=== PATIENT | male | born 1965 | race Caucasian/White ===

== ENCOUNTER 2018-07-08 11:26 | Inpatient (IN) | payer BC ==
--- NOTE | 2018-06-30 14:59 | HP ---
HISTORY AND PHYSICAL: DATE OF ADMISSION/SURGERY: 07/08/18 DATE OF OFFICE VISIT: 06/30/18 SURGEON: Amaris Calhoun MD* (dictated by RACHEL Carmen). PROCEDURE: Right total hip arthroplasty. CHIEF COMPLAINT: Right hip pain. HISTORY OF PRESENT ILLNESS: Mr. Ford is a 53-year-old gentleman with continued complaints of right hip pain. He has failed conservative treatment and elected to proceed with a right total hip arthroplasty. PAST MEDICAL HISTORY: Denies. PAST SURGICAL HISTORY: Tonsillectomy and cosmetic surgery on his ears. CURRENT MEDICATIONS: Addison as needed. ALLERGIES: No known drug allergies. FAMILY HISTORY: Coronary artery disease. SOCIAL HISTORY: He is a 53-year-old gentleman. He lives with his . He does not smoke, use drugs, or alcohol. REVIEW OF SYSTEMS: A complete 14-point review of systems was reviewed with the patient. It was all negative or noncontributory. He denies history of DVT, PE , hepatitis, HIV or anesthesia problems. PHYSICAL EXAMINATION GENERAL: He is well developed, well nourished, in no acute distress. VITAL SIGNS: He stands 5 feet 10 inches tall, weighs 219 pounds. His blood pressure is 138/94, his heart rate is 76. HEENT: Normocephalic, atraumatic. NECK: Supple. No palpable lymph nodes. PULMONARY: The lungs are clear to auscultation bilaterally. CARDIO: Regular rate and rhythm. Strong S1, S2. ABDOMEN: Soft, nontender, nondistended. NEUROLOGICAL: He is alert and oriented x3. MUSCULOSKELETAL: Right lower extremity: The skin is intact. There are no open wounds or abrasions. He walks with an antalgic type gait favoring his right hip. He has decreased internal and external rotation of the right hip. He has a 2+ dorsalis pedis pulse. Intact sensation. His lower extremity muscle group strengths are intact at 5/5. ASSESSMENT AND PLAN: Mr. Ford is a 53-year-old gentleman with end-stage osteoarthritis of the right hip. He has failed conservative treatment and elected to proceed with a right total hip arthroplasty. The surgery is scheduled for 07/08/[address] Calhoun discussed the risks and benefits of the surgery at today's visit and all of his questions were answered. He will follow up with Dr. Calhoun 2 weeks after the surgery. RACHEL CARMEN [id number]/[facility] #: [id number] DORETHA
[~2018-07-08 11:26] MED LIST: Acetaminophen TAB* 325 MG PO ONE; Buffered Lidocaine 1% SYRIN* 1 ML/SYRINGE INTRADERM ONE; Dexamethasone TAB* 4 MG PO ONE; DiMENhydriNATE IV* 50 MG/ML VIAL IV PUSH PRN; Famotidine IV* 10 MG/ML 2 ML (20 mg) IV ONE; Gabapentin CAP(*) 300 MG PO ONE; Lactated Ringers 1000 ML Bag* 1,000 ML IV SCH; Morphine 4 MG/ML VIAL (1 ml) 4 MG/ML VIAL IV PRN; Naloxone* 0.4 MG/ML 1 ML VIAL IV PRN; Ondansetron TAB* 4 MG PO ONE; PROCHLORPERAZINE INJ 5 MG/ML 2 ML VIAL IV PRN; Scopolamine 1.5 mg* PATCH TRANSDERM PRN; celeCOXIB CAP* 200 MG PO ONE; fentaNYL* 50 MCG/ML 2 ML VIAL (100 MCG VIAL) IV PRN; oxyCODONE/Acetamin 5/325 MG* TAB PO PRN
--- OUTSIDE RECORDS SUMMARY | 2018-07-08 11:29 | XMS REPORT | Continuity of Care Document ---
:1965 External Reference #:[id number] Author Name Renuka Joshi Care Team Providers Name Role Phone Rafita Benjamin MD Care Team Information Grooming Assistant Unavailable Rafita Benjamin MD Primary Care Physician Unavailable Payers Date Identification Numbers Payment Provider Subscriber Policy Number: [id number] [employer] Ellie Ford PayID: [id number] [address] [address] [place] [address] Effective: 2017 Policy Number: [id number] [employer] Ppo Ellie Ford Expires: 2018 PayID: [id number] [address] [address] [place] Patel [address] Advance Directives Description No Information Available Problems Date Description Provider Status Onset: 10/12/2015 Localized, primary osteoarthritis of the Amaris Deb Calhoun Active pelvic region and thigh Onset: 07/20/2012 Essential hypertension Active Onset: 05/01/2011 Anxiety state Active Onset: 05/01/2011 Vitamin D deficiency Active Onset: 05/01/2011 Depressive disorder Active Onset: 05/01/2011 Attention deficit hyperactivity disorder, Active predominantly inattentive type Onset: 07/20/2012 Panic disorder without agoraphobia Active Onset: 07/20/2012 Bipolar I disorder Active Onset: 07/20/2012 Impotence of organic origin Active Family History Date Family Member(s) Observation Comments General Heart Disease General Cancer Father Heart Attack Age 62 Father Diabetes Father Breast Cancer Social History Type Date Description Comments Sex Unknown 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 hours as needed for pain No Active 06/04 Hx Unknown Medications - 06/04 Celecoxib 03/16 Hx Capsules 200mg 30cap 1 by mouth M15.9 s every day Angelina gibson MD 06/04 Amphetamine-Dextroa 12/15 Hx Caps ER 30mg 30cap 1 by mouth F90.0 Rafita mphet ER 24HR s every day Flakoellaliliam gibson MD 06/04 Methylphenidate HCL 09/09 Hx Caps ER 20mg 10cap 1 by mouth F90.0 Rafita ER (LA) 24HR s every day Angelina gibson MD 01/25 Adderall XR 07/30 Hx Caps ER 30mg 30cap 1 by mouth F90.0 24HR s every day Castellan - (anjum) os, 09/09 Aleve 07/15 Hx Capsules 220mg 1 tab twice a Castellan - day as os, 03/16 needed Naproxen Sodium 07/15 Hx Tablets 220mg M54.5 Angelina gibson MD 03/16 Dexmethylphenidate 07/15 Hx Caps ER 30mg 30cap stop this F90.0 Rafita HCL 24HR s med Angelina gibson MD 07/30 Celecoxib 04/23 Hx Capsules 200mg 30cap 1 by mouth M54.5 s every day Angelina gibson MD 07/15 Cyclobenzaprine HCL 04/23 Hx Tablets 5mg 30tab 1 by mouth M54.5 s three Castellan - times a os, Tramadol HCL 04/23 Hx Tablets 50mg 60tab 1 by mouth M54.5 s four times Castellan - a day if os, 07/15 with one tylenol Viagra 04/23 Hx Tablets 100mg 6tabs use as N52.9 needed Castellan - daily os, 07/15 Omeprazole 03/27 Hx Capsules 40mg 30cap 1 by mouth R07.9 DR s every day Angelina gibson MD 04/22 Adderall 01/20 Hx Tablets 10mg 30tab 1 daily at F90.0 s 3pm Angelina gibson MD 07/15 Azithromycin 11/19 Hx Tablets 250mg 6tabs 2 now and J01.00 1 daily x Castellan - 4 days os, 01/20 Mucinex 11/19 Hx Tablets 600mg 30tab 2 by mouth J01.00 ER 12HR s twice a Castellan - day os, 01/20 Adderall XR 10/18 Hx Caps ER 30mg 30cap 1 by mouth F90.0 24HR s every day Angelina gibson MD 07/15 Benzonatate 10/15 Hx Capsules 200mg 45cap one cap 3 s times a Castellan - day as os, 01/20 cough Amoxicillin 10/14 Hx Tablets 500mg 30tab 1 by mouth J06.9 s three Castellan - times a os, 11/19 day x days Adderall 09/12 Hx Tablets 15mg 60tab 1 twice a F90.0 s day Angelina gibson MD 09/12 Adderall XR 09/12 Hx Caps ER 15mg 60cap 2 daily 24HR s Angelina gibson MD 10/18 Adderall XR 09/11 Hx Caps ER 30mg 30cap 1 by mouth F90.0 24HR s every day Angelina gibson MD 09/12 Dextroamphetamine 07/19 Hx Caps ER 15mg 30cap 1 daily in F90.0 Sulfate 24HR s am Angelina gibson MD 09/11 Sertraline HCL 10/11 Hx Tablets 50mg 30tab 1 by mouth 300.00 s every day Angelina gibson MD 01/11 Adderall XR 02/10 Hx Caps ER 30mg 30cap 1 by mouth F90.0 24HR s every day Angelina gibson MD 09/11 Cardura 08/25 Hx Tablets 1mg 30tab 1 daily 401.9 s Angelina gibson MD 02/10 Zoloft 10/24 Hx Tablets 50mg 30tab 1 by mouth 311 s every day Angelina gibson MD 10/24 Adderall XR 10/24 Hx Caps ER 25mg 30cap one daily 314.00 24HR s Angelina gibson MD 02/10 Lisinopril-Hydrochl 10/24 Hx Tablets 10-12.5mg 30tab 1 by mouth 401.9 Rafita orothi s every day Angelina gibson MD 11/28 Adderall XR 09/23 Hx Caps ER 10mg 60cap 1 by mouth 314.00 24HR s twice a Flakoellan - day paige, 10/24 Xyzal 09/23 Hx Tablets 5mg 30tab 1 by mouth 995.3 s every day Angelina gibson MD 05/29 Hydrocodone-Acetami 07/18 Hx Tablets 5-325mg 60tab 1 every 4 724.5 Rafita s hrs prnAngelina - 1.5 to 2 os, 09/02 for severe pain Ibuprofen 07/18 Hx Tablets 800mg 90tab 1 by mouth s three Angelina - times a osMD Ativan 07/18 Hx Tablets 1mg 2tabs take 1 tab 1/2 hour Angelina - before osMD 09/02 procedure take an extra tab at procedure if needed for anxiety Meloxicam 06/23 Hx Tablets 15mg 30tab 1 po qd 724.5 s Angelina Ruelas osMD 07/18 Cyclobenzaprine HCL 06/23 Hx Tablets 10mg 45tab 1 by mouth 724.5 s three Angelina - times a osMD Adderall XR 06/23 Hx Caps ER 20mg 30cap 1 by mouth 314.00 24HR s daily in Angelina - in the osMD 09/23 Lisinopril-Hydrochl 06/23 Hx Tablets 20-12.5mg 90tab 1 po qd 401.9 Rafita orothi zunilda gibson MD 10/24 Zoloft 10/25 Hx Tablets 50mg 90tab 1 po qd 311 zunilda gibson MD 09/02 Adderall XR 10/25 Hx Caps ER 10mg 60cap 1 tab bid 314.00 24HR zunilda gibson MD 06/23 Hydrochlorothiazide 07/27 Hx Tablets 25mg 90tab 1 po qd 401.9 zunilda gibson MD 06/23 Adderall XR 05/01 Hx Caps ER 20mg 30cap 1 po qd 314.00 24HR zunilda gibson MD 05/18 Adderall 00 Hx Tablets 30mg 1 tab by Unknown /0000 mouth - twice a Bupropion HCL ER Hx Tablets 150mg 1 by mouth Unknown (SR) /0000 ER 12HR twice a - day 06/[address] Hx Tablets 500mg by mouth Unknown /0000 DR twice a - day with 06/04 Immunizations Description No Information Available Vital Signs Date Vital Result Comment 06/30/2018 9:38am Height 70.0 inches 5'10" Weight 219.00 lb Heart Rate 76 /min BP Systolic 138 mmHg BP Diastolic 94 mmHg Body Temperature 97.2 F Pain Level 3 BMI (Body Mass Index) 31.4 kg/m2 06/04/2018 8:23am Height 70.0 inches 5'10" Weight 218.00 lb BP Systolic 128 mmHg BP Diastolic 84 mmHg Pain Level 3 BMI (Body Mass Index) 31.3 kg/m2 03/16/2018 11:05am Weight 217.00 lb BP Systolic 104 mmHg BP Diastolic 74 mmHg 12/15/2017 1:27pm Height 69.6 inches Weight 213.00 lb Heart Rate 80 /min BP Systolic 118 mmHg BP Diastolic 84 mmHg Respiratory Rate 16 /min BMI (Body Mass Index) 30.9 kg/m2 09/07/2017 3:55pm Weight 212.00 lb Heart Rate 66 /min BP Systolic 130 mmHg BP Diastolic 54 mmHg 07/30/2017 1:09pm Heart Rate 76 /min BP Systolic 138 mmHg BP Diastolic 90 mmHg Respiratory Rate 18 /min 07/15/2017 8:30am Height 70 inches Weight 213.00 lb BP Systolic 112 mmHg BP Diastolic 60 mmHg BMI (Body Mass Index) 30.6 kg/m2 04/23/2017 9:03am Weight 213.00 lb BP Systolic 108 mmHg BP Diastolic 80 mmHg 01/22/2017 3:58pm Weight 206.00 lb BP Systolic 118 mmHg BP Diastolic 90 mmHg 10/23/2016 1:42pm Height 70 inches Weight 221.00 lb BP Systolic 122 mmHg BP Diastolic 88 mmHg BMI (Body Mass Index) 31.7 kg/m2 07/31/2016 1:58pm Weight 218.00 lb BP Systolic 120 mmHg BP Diastolic 90 mmHg 07/24/2016 11:40am BP Systolic 118 mmHg BP Diastolic 80 mmHg 07/15/2016 8:37am Height 70.50 inches Weight 216.50 lb Heart Rate 68 /min BP Systolic 110 mmHg BP Diastolic 80 mmHg Respiratory Rate 16 /min Body Temperature 97.0 F BMI (Body Mass Index) 30.6 kg/m2 04/22/2016 9:48am Weight 220.00 lb BP Systolic 108 mmHg BP Diastolic 84 mmHg 03/27/2016 2:01pm Weight 216.00 lb BP Systolic 118 mmHg BP Diastolic 88 mmHg 01/21/2016 9:43am Weight 213.00 lb BP Systolic 110 mmHg BP Diastolic 80 mmHg 11/20/2015 3:14pm Weight 216.00 lb BP Systolic 110 mmHg BP Diastolic 80 mmHg 10/19/2015 11:06am Weight 214.00 lb Heart Rate 84 /min BP Systolic 110 mmHg BP Diastolic 82 mmHg Body Temperature 98.2 F 10/15/2015 2:47pm Height 39.45 inches 3'3.45" Weight 211.00 lb BP Systolic 130 mmHg BP Diastolic 82 mmHg BMI (Body Mass Index) 14.8 kg/m2 10/12/2015 10:28am Height 70 inches 5'10" Weight 215.00 lb Heart Rate 86 /min BP Systolic 119 mmHg BP Diastolic 88 mmHg BMI (Body Mass Index) 30.8 kg/m2 09/12/2015 2:08pm Weight 217.00 lb BP Systolic 120 mmHg BP Diastolic 92 mmHg 07/20/2015 11:33am Weight 219.00 lb BP Systolic 110 mmHg BP Diastolic 82 mmHg 01/11/2015 4:35pm Weight 198.00 lb BP Systolic 118 mmHg BP Diastolic 78 mmHg 10/11/2014 10:48am Weight 220.50 lb BP Systolic 120 mmHg BP Diastolic 84 mmHg 05/29/2014 10:40am Height 69.55 inches Weight 219.00 lb Heart Rate 71 /min BP Systolic 118 mmHg BP Diastolic 80 mmHg Body Temperature 97.2 F BMI (Body Mass Index) 31.8 kg/m2 05/03/2014 10:01am Weight 215.50 lb BP Systolic 116 mmHg BP Diastolic 84 mmHg 02/10/2014 9:40am Weight 215.50 lb BP Systolic 108 mmHg BP Diastolic 80 mmHg 11/28/2013 11:52am Weight 212.50 lb BP Systolic 106 mmHg BP Diastolic 80 mmHg 10/24/2013 11:23am Weight 211.00 lb BP Systolic 92 mmHg BP Diastolic 76 mmHg 09/23/2013 8:50am Weight 212.00 lb BP Systolic 90 mmHg BP Diastolic 72 mmHg 07/18/2013 9:50am Weight 212.00 lb BP Systolic 100 mmHg BP Diastolic 90 mmHg 07/13/2013 10:51am Weight 212.50 lb BP Systolic 130 mmHg BP Diastolic 88 mmHg 06/23/2013 8:15am Weight 213.50 lb BP Systolic 138 mmHg BP Diastolic 110 mmHg 05/18/2013 1:11pm Weight 225.00 lb BP Systolic 104 mmHg BP Diastolic 90 mmHg 11/24/2012 9:34am Weight 218.00 lb BP Systolic 100 mmHg BP Diastolic 80 mmHg 10/25/2012 11:46am Weight 220.50 lb BP Systolic 120 mmHg BP Diastolic 82 mmHg 07/20/2012 9:53am Height 70 inches Weight 219.00 lb BP Systolic 108 mmHg BP Diastolic 90 mmHg BMI (Body Mass Index) 31.4 kg/m2 04/19/2012 3:45pm Height 70 inches Weight 224.50 lb BP Systolic 138 mmHg BP Diastolic 90 mmHg BMI (Body Mass Index) 32.2 kg/m2 10/27/2011 10:14am Height 70 inches Weight 220.00 lb BP Systolic 108 mmHg BP Diastolic 82 mmHg BMI (Body Mass Index) 31.6 kg/m2 07/28/2011 9:14am Height 70 inches Weight 220.00 lb BP Systolic 134 mmHg BP Diastolic 94 mmHg BMI (Body Mass Index) 31.6 kg/m2 05/01/2011 10:55am Height 70 inches Weight 219.50 lb BP Systolic 104 mmHg BP Diastolic 94 mmHg BMI (Body Mass Index) 31.5 kg/m2 Results Test Date Facility Test Result H/L Range Note Laboratory test 07/24/2016 N2N/CCD Import Surgical See Result 1, 2 finding Interface Order Below CBC 07/17/2016 N2N/CCD Import Hematocrit 48.0 % 38-48 3 Hemoglobin 17.1 gm/dL High 12.8-17 Mean Cell Volume 85.1 fl 80-96 Mean Corpuscular HGB 30.3 pg 27-33 Mean Corpuscular HGB Conc 35.6 g/dL 31.7-36 Mean Platelet Volume 9.3 fL 6.6-10.6 Platelet Count 253 K/uL 150-400 Red Blood Count 5.64 M/uL 4.2-5.8 Red Cell Distri Width %CV 13.0 % 11.6-15.8 White Blood Count 7.0 K/uL 3.4-10.5 Laboratory test finding 07/15/2016 N2N/CCD Import PSA (Ash Loci) 0.54 ng/ mL 4 Reflex add FT3? Y Reflex add FT4? Y Thyroid Stim Hormone 0.53 uIU/mL 0.3-4.2 Basic Metabolic Panel 07/15/2016 N2N/CCD Import Anion Gap 7 mEq/L Low 8- 16 BUN 16 mg/dL 7-18 BUN/Creat 13.3 ratio Calcium 8.9 mg/dL 8.5-10.1 Carbon Dioxide 27 mmol/L 21-32 Chloride 107 mmol/L 98-107 Creatinine 1.2 mg/dL 0.6-1.3 Glom Filtration Rate, Estimate >60 mL/min Glucose 95 mg/dL 74-106 If >60 mL/min 5 Potassium 3.9 mmol/L 3.5-5.1 Reflex add FT3? Y Reflex add FT4? Y Sodium 141 mmol/L 136-145 LDL Cholesterol Profile 07/15/2016 N2N/CCD Import Cholesterol 235 mg/dL High 6 HDL Cholesterol 53 mg/dL 7 LDL-Cholesterol 154 mg/dL 8 Reflex add FT3? Y Reflex add FT4? Y Triglycerides 138 mg/dL 9 Laboratory test 07/20/2012 N2N/CCD Import Thyroid Stim 0.64 uIU/mL 0.49- 4.67 finding Hormone CBC 07/20/2012 N2N/CCD Import Hematocrit 48.5 % High 38-48 Hemoglobin 17.4 gm/dL High 12.8-17 Mean Cell Volume 86.5 fl 80-96 Mean Corpuscular HGB 31.0 pg 27-33 Mean Corpuscular HGB Conc 35.9 g/dL 31.7-36 Mean Platelet Volume 9.6 fL 6.6-10.6 Platelet Count 274 K/uL 150-400 Red Blood Count 5.61 M/uL 4.2-5.8 Red Cell Distri Width %CV 13.2 % 11.6-15.8 White Blood Count 6.8 K/uL 3.4-10.5 Comprehensive Metabolic Panel 07/20/2012 N2N/CCD Import Alb/Glob 1.2 ratio Albumin 4.2 g/dL 3.5-5 Alkaline Phosphatase 70 U/L 50-136 Anion Gap 12 mEq/L 8-16 BUN 17 mg/dL 5-23 BUN/Creat 17.0 ratio Bilirubin,Total 1.1 mg/dL 0.2-1.2 Calcium 9.1 mg/dL 8.5-10.1 Carbon Dioxide 25 mEq/L 18-29 Chloride 106 mmol/L 98-107 Creatinine 1.0 mg/dL 0.5-1.4 Globulin 3.4 g/dL 1.9-4.3 Glom Filtration Rate, Estimate >60 mL/min Glucose 91 mg/dL 76-115 If >60 mL/min 10 Potassium 4.0 mmol/L 3.5-5.1 SGPT/Alt 53 U/L 30-65 Sgot/Ast 19 U/L 16-40 Sodium 139 mmol/L 136-145 Total Protein 7.6 g/dL 6.3-8 LDL Cholesterol 07/20/2012 N2N/CCD Import Cholesterol 228 mg/dL High 120- 200 Profile HDL Cholesterol 45 mg/dL 29-83 LDL-Cholesterol 156 mg/dL 62-185 Triglycerides 134 mg/dL 16-231 1 [id number] 2 SEE RESULT BELOW Name: PARISA FORD : [address]: Rafita Benjamin MD Acct: [id number] Unit: [id number] AGE: 51 Location: [facility] Re07/24/16 SEX: M Status: REG REF SPEC: [id number] LEIGH ANN: 07/24/16-[address]: Rafita Benjamin MD REQ: [id number] RECD: 07/25/16-1413 STATUS: SOUT _ ORDERED: LEVEL IV COMMENTS: [id number] FINAL DIAGNOSIS Skin, right mid forearm, excision: -- Interface dermatitis; see comment. COMMENT: The histologic differential diagnosis includes a lesion of lichen planus and a benign lichenoid keratosis. CLINICAL HISTORY Lesion on right forearm for over 2 months, not healing PRE-OPERATIVE DIAGNOSIS Non-healing lesion right forearm GROSS DESCRIPTION The specimen is received in formalin labeled, Lesion Right Mid Forearm, and consists of a 0.6 x 0.4 x 0.3 cm ty-lopez irregular skin fragment, which is inked, trisected and submitted entirely in one cassette. Signed (signature on file) Brittany Gonzales MD 1320 END OF REPORT * ML=Testing performed at Main Lab DEPARTMENT OF PATHOLOGY, [address] [place] [address] Darrel Cheung M.D. Director [facility] # [id number] 3 Z12.5 F32.9 Z00.00 4 THIS ASSAY IS NOT INTENDED A CANCER SCREENING TEST The concentration of PSA in a given specimen, determined with assays from different manufacturers, can vary due to differences in assay methods and reagent specificity. Values obtained from different assay methods cannot be used interchangeably. Method: [employer] Ash Chemiluminescent immunoassay. 5 Note: Persistent reduction for 3 months or more in an eGFR <60 mL/min/1.73 m2 defines CKD. Patients with eGFR values >/=60 mL/min/1.73 m2 may also have CKD if evidence of persistent proteinuria is present. The original MDRD equation for estimated GFR is not valid for patients less than 18 years of age. Additional information may be found at www.kdoqi.org. 6 Reference Guidelines*: Desirable: ........... < 200 mg/dL Borderline High: ..... 200-239 mg/dL High: ................ >=240 mg/dL * The National Cholesterol Education Program (NCEP) 7 Reference Guidelines*: Low HDL: ..... < 40 mg/dL Normal: ..... 40-60 mg/dL Desirable: ... > 60 mg/dL *The National Cholesterol Education Program(NCEP) 8 Reference Guidelines*: Optimal:........... <100 mg/dL Near Optimal....... 100-129 mg/dL Borderline High.... 130-159 mg/dL High............... 160-189 mg/dL Very High.......... >=190 mg/dL * Source: National Cholesterol Education Program (NCEP) 9 Reference Guidelines*: Normal: ............. < 150 mg/dL Borderline High: .... 150-199 mg/dL High: ............... 200-499 mg/dL Very High: .......... > 500 mg/dL * Source: National Cholesterol Education Program (NCEP) 10 Note: Persistent reduction for 3 months or more in an eGFR <60 mL/min/1.73 m2 defines CKD. Patients with eGFR values >/=60 mL/min/1.73 m2 may also have CKD if evidence of persistent proteinuria is present. The original MDRD equation for estimated GFR is not valid for patients less than 18 years of age. Additional information may be found at www.kdoqi.org. Procedures Date Code Description Status 07/24/2016 09849 Biopsy Skin Lesion Single Completed 03/27/2016 76675 EKG Tracing & Interpretation Completed 05/29/2014 98302 Pure Tone Hearing Test, Air Completed 07/13/2013 831216667 Diabetic Retinal Eye Exam Completed 07/20/2012 20640 EKG Tracing & Interpretation Completed 05/15/2010 07996 Visual funct screen test, automated Completed 05/15/2010 39732 Pure Tone-Air Condition Only Completed Encounters Type Date Location Provider Dx Diagnosis Office Visit 06/04/2018 [facility] Am[facility] Calhoun M25.551 Pain in right hip 8:15a [facility] M16.11 Unilateral primary osteoarthritis, right hip Office Visit 10/12/2015 10:00a [facility] Amaris Calhoun M25.551 Pain in right Of [facility] hip M16.11 Unilateral primary osteoarthritis, right hip Plan of Treatment Future Appointment(s):07/19/2018 9:00 am - Amaris Calhoun M.D. at [facility]07/01/2018 3:30 pm - Rafita Benjamin MD at [facility]07/08/2018 2:30 pm - Erick Jane PA-C at [facility]07/2018 2:30 pm - RAMY Del Castillo at [facility]2018 2:30 pm - Amaris Calhoun M.D. at [facility]12/16/2018 1 :00 pm - Rafita Benjamin MD at [facility] Primary Care06/30/2018 - Amaris Calhoun M.D.M25.551 Pain in right hipFollow up:Follow up: 2 weeks after [id number] Unilateral primary osteoarthritis, right hip
--- OUTSIDE RECORDS SUMMARY | 2018-07-08 11:29 | XMS REPORT | Continuity of Care Document ---
:1965 External Reference #:[id number] Author Name Dominga Goins Care Team Providers Name Role Phone Rafita Benjamin MD Care Team Information Brewing Director Unavailable Rafita Benjamin MD Primary Care Physician Unavailable Payers Date Identification Numbers Payment Provider Subscriber Policy Number: [id number] BS Facets Ellie Ford PayID: [id number] [address] [address] [place] Bhatti [address] Effective: 2017 Policy Number: [id number] Blue Shield Ppo Ellie Ford Expires: 2018 PayID: [id number] [address] [address] NEGIN Patel [address] Advance Directives Description No Information Available Problems [...] Form Strength Qnty SIG Indications Ordering Provider [place]ette 06/04 Active Tablets 5-325mg 60tab 1 tabs by Amaris s mouth Lj, every 8 M.D. hours as needed for pain No Active 06/04 Hx Unknown Medications - 06/04 Celecoxib 03/16 Hx Capsules 200mg 30cap 1 by mouth M15.9 s every day Angelina gibson MD 06/04 Amphetamine-Dextroa 12/15 Hx Caps ER 30mg 30cap 1 by mouth F90.0 Rafita mphet ER 24HR s every day Angelina gibson MD 06/04 Methylphenidate HCL 09/09 Hx [...] every day Angelina gibson MD 09/11 Cardura 11/28 Hx Tablets 1mg 30tab 1 daily 401.9 [...] s daily in Angelina - in the os, 09/23 Lisinopril-Hydrochl 06/23 Hx Tablets 20-12.5mg 90tab [...] 314.00 24HR zunilda gibson MD 05/18 Adderall Hx Tablets 30mg 1 tab by Unknown [...] Date Facility Test Result H/L Range Note Comp Metabolic Panel 06/30/2018 [facility] Sodium 137 mmol/L N 135-[address] [place] [address] [phone] Potassium 4.3 mmol/L N 3.5-5.0 Chloride 102 mmol/L N 101-111 Co2 Carbon Dioxide 28 mmol/L N 22-32 Anion Gap 7 mmol/L N 2-11 Glucose 82 mg/dL N 70-100 Blood Urea Nitrogen 20 mg/dL N 6-24 Creatinine 0.98 mg/dL N 0.67-1.17 BUN/Creatinine Ratio 20.4 High 8-20 Calcium 9.4 mg/dL N 8.6-10.3 Total Protein 7.2 g/dL N 6.4-8.9 Albumin 4.7 g/dL N 3.2-5.2 Globulin 2.5 g/dL N 2-4 Albumin/Globulin Ratio 1.9 N 1-3 Total Bilirubin 1.00 mg/dL N 0.2-1.0 Alkaline Phosphatase 59 U/L N 34-104 Alt 34 U/L N 7-52 Ast 21 U/L N 13-39 Egfr Non- 79.4 >60 Egfr 96.1 >60 2 CBC Auto Diff 06/30/2018 [facility] White Blood 6.2 10^3/uL N 3.5-10.[address] [place] [address] [phone] Red Blood Count 5.60 10^6/uL High 4.18-5.48 Hemoglobin 17.4 g/dL N 14.0-18.0 Hematocrit 49 % High 36-46 Mean Corpuscular Volume 88 fL N 80-94 Mean Corpuscular Hemoglobin 31 pg N 27-31 Mean Corpuscular HGB Conc 35 g/dL N 31-36 Red Cell Distribution Width 13 % N 10.5-15 Platelet Count 261 10^3/uL N 150-450 Mean Platelet Volume 7.5 fL N 7.4-10.4 Abs Neutrophils 3.7 10^3/uL N 1.5-7.7 Abs Lymphocytes 1.9 10^3/uL N 1.0-4.8 Abs Monocytes 0.5 10^3/uL N 0-0.8 Abs Eosinophils 0.1 10^3/uL N 0-0.6 Abs Basophils 0.1 10^3/uL N 0-0.2 Abs Nucleated RBC 0 10^3/uL Granulocyte % 59.9 % Lymphocyte % 30.1 % Monocyte % 7.4 % Eosinophil % 1.6 % Basophil % 1.0 % Nucleated Red Blood Cells % 0.1 Urinalysis Profile 06/30/2018 [facility] Urine Color Yellow [address] [place] [address] [phone] Urine Appearance Clear Urine Specific [place] 1.019 N 1.010-1.030 Urine pH 5.0 N 5-9 Urine Urobilinogen Negative Negative Urine Ketones Negative Negative Urine Protein Negative Negative Urine Leukocytes Negative Negative Urine Blood Negative Negative Urine Nitrite Negative Negative Urine Bilirubin Negative Negative Urine Glucose Negative Negative Inr/Protime 06/30/2018 [facility] Inr 0.90 N 0.77-1.[address] [place] [address] [phone] Laboratory test 06/30/2018 [facility] Partial 30.2 seconds N 26.0-36.[address] [place] [address] PTT [phone] Type & Screen 06/30/2018 [facility] Patient A Positive [address] [place] [address] [phone] Antibody Screen NEGATIVE Laboratory test 07/24/2016 N2N/CCD Import Surgical See Result 4, 5 finding Interface Order Below CBC 07/17/2016 N2N/CCD Import Hematocrit 48.0 % 38-48 6 Hemoglobin 17.1 gm/dL High 12.8-17 Mean Cell Volume 85.1 fl 80-96 Mean Corpuscular HGB 30.3 pg 27-33 Mean Corpuscular HGB Conc 35.6 g/dL 31.7-36 Mean Platelet Volume 9.3 fL 6.6-10.6 Platelet Count 253 K/uL 150-400 Red Blood Count 5.64 M/uL 4.2-5.8 Red Cell Distri Width %CV 13.0 % 11.6-15.8 White Blood Count 7.0 K/uL 3.4-10.5 Laboratory test finding 07/15/2016 N2N/CCD Import PSA ([place] Loci) 0.54 ng/ mL 7 Reflex add FT3? Y Reflex add FT4? [...] Glucose 95 mg/dL 74-106 If >60 mL/min 8 Potassium 3.9 mmol/L 3.5-5.1 Reflex add FT3? Y Reflex add FT4? Y Sodium 141 mmol/L 136-145 LDL Cholesterol Profile 07/15/2016 N2N/CCD Import Cholesterol 235 mg/dL High 9 HDL Cholesterol 53 mg/dL 10 LDL-Cholesterol 154 mg/dL 11 Reflex add FT3? Y Reflex add FT4? Y Triglycerides 138 mg/dL 12 Laboratory test 07/20/2012 N2N/CCD Import Thyroid Stim [...] Glucose 91 mg/dL 76-115 If >60 mL/min 13 Potassium 4.0 mmol/L 3.5-5.1 SGPT/Alt 53 U/L 30-65 Sgot/Ast 19 U/L 16-40 Sodium 139 mmol/L 136-145 Total Protein 7.6 g/dL 6.3-8 LDL Cholesterol 07/20/2012 N2N/CCD Import Cholesterol 228 mg/dL High 120- 200 Profile HDL Cholesterol 45 mg/dL 29-83 LDL-Cholesterol 156 mg/dL 62-185 Triglycerides 134 mg/dL 16-231 1 07/08 2 Because ethnic data is not always readily available, this report includes an eGFR for both -Americans and non- Americans. The National Kidney Disease Education Program (NKDEP) does not endorse the use of the MDRD equation for patients that are not between the ages of 18 and 70, are , have extremes of body size, muscle mass, or nutritional status, or are non- or non-. According to the National Kidney Foundation, irrespective of diagnosis, the stage of the disease is based on the level of kidney function: Stage Description GFR(mL/min/1.73 m(2)) 1 Kidney damage with normal or decreased GFR 90 2 Kidney damage with mild decrease in GFR 60-89 3 Moderate decrease in GFR 30-59 4 Severe decrease in GFR 15-29 5 Kidney failure <15 (or dialysis) 3 07/08 4 [id number] 5 SEE RESULT BELOW Name: PARISA FORD : [address]: Rafita Benjamin MD Acct: [id number] Unit: [id number] AGE: 51 Location: [facility] Re07/24/16 SEX: M Status: REG REF SPEC: [id number] LEIGH ANN: 07/24/16-[address]: Rafita Benjamin MD REQ: [id number] RECD: 07/25/16 STATUS: SOUT _ ORDERED: LEVEL IV COMMENTS: [id number] FINAL DIAGNOSIS Skin, right mid forearm, excision: [...] performed at Main Lab DEPARTMENT OF PATHOLOGY, [address] [place] [address] Darrel Cheung M.D. Director [facility] # [id number] 6 Z12.5 F32.9 Z00.00 7 THIS ASSAY IS NOT INTENDED A CANCER SCREENING TEST The concentration of PSA in a given specimen, determined with assays from different manufacturers, can vary due to differences in assay methods and reagent specificity. Values obtained from different assay methods cannot be used interchangeably. Method: Siemens Calibrus [place] Chemiluminescent immunoassay. 8 Note: Persistent reduction for 3 months or more in an eGFR <60 mL/min/1.73 m2 defines CKD. Patients with eGFR values >/=60 mL/min/1.73 m2 may also have CKD if evidence of persistent proteinuria is present. The original MDRD equation for estimated GFR is not valid for patients less than 18 years of age. Additional information may be found at www.kdoqi.org. 9 Reference Guidelines*: Desirable: ........... < 200 mg/dL Borderline High: ..... 200-239 mg/dL High: ................ >=240 mg/dL * The National Cholesterol Education Program (NCEP) 10 Reference Guidelines*: Low HDL: ..... < 40 mg/dL Normal: ..... 40-60 mg/dL Desirable: ... > 60 mg/dL *The National Cholesterol Education Program(NCEP) 11 Reference Guidelines*: Optimal:........... <100 mg/dL Near Optimal....... 100-129 mg/dL Borderline High.... 130-159 mg/dL High............... 160-189 mg/dL Very High.......... >=190 mg/dL * Source: National Cholesterol Education Program (NCEP) 12 Reference Guidelines*: Normal: ............. < 150 mg/dL Borderline High: .... 150-199 mg/dL High: ............... 200-499 mg/dL Very High: .......... > 500 mg/dL * Source: National Cholesterol Education Program (NCEP) 13 Note: Persistent reduction for 3 months or [...] www.kdoqi.org. Procedures Date Code Description Status 07/24/2016 55752 Biopsy Skin Lesion Single Completed 03/27/2016 51503 EKG Tracing & Interpretation Completed 05/29/2014 37859 Pure Tone Hearing Test, Air Completed 07/13/2013 [id number] Diabetic Retinal Eye Exam Completed 07/20/2012 13228 EKG Tracing & Interpretation Completed 05/15/2010 91067 Visual funct screen test, automated Completed 05/15/2010 98400 Pure Tone-Air Condition Only Completed Encounters Type Date Location Provider Dx Diagnosis Office Visit 06/04/2018 [facility] Calhoun M25.551 Pain in right hip 8:15a [facility] M16.11 Unilateral primary osteoarthritis, right hip Office Visit 10/12/2015 10:00a [facility] Am[facility]houn M25.551 Pain in right [facility] hip M16.11 Unilateral primary osteoarthritis, right hip Plan of Treatment Future Appointment(s):07/19/2018 9:00 am - Amaris [facility]oun M.D. at [facility]07/08/2018 2:30 pm - Erick Jane PA-C at [facility]07/08/2018 2:30 pm - RAMY Del Castillo at [facility]07/08/2018 2:30 pm - Amaris Calhoun M.D. at [facility]12/16/2018 1:00 pm - Rafita Benjamin MD at [facility] Primary Care06/30/2018 - Amaris Calhoun M.D.M25.551 Pain in right hipFollow up:Follow up : 2 weeks after mgtzxozD32.11 Unilateral primary osteoarthritis, right hip
--- OUTSIDE RECORDS SUMMARY | 2018-07-08 11:29 | XMS REPORT | Continuity of Care Document ---
:1965 External Reference #:[id number] Author Name Will Hazel Care Team Providers Name Role Phone Rafita Benjamin MD Care Team Information Piping Blocker Unavailable Rafita Benjamin MD Primary Care Physician Unavailable Payers Date Identification Numbers Payment Provider Subscriber Policy Number: [id number] BS Facets Ellie Ford PayID: [id number] [address] [address] [place] [address] Effective: 2017 Policy Number: [id number] Blue Shield Ppo Ellie Ford Expires: 2018 PayID: [id number] [address] [address] NE[place] Patel [address] Advance Directives Description No Information Available Problems Date Description Provider Status Onset: 10/12/2015 Localized, primary osteoarthritis of mAaris Calhoun M.D. Active the pelvic region and thigh Onset: 07/20/2012 Impotence of organic origin Active Onset: 05/01/2011 Vitamin D deficiency Active Onset: 05/01/2011 Anxiety state Active Onset: 07/20/2012 Essential hypertension Resolved Resolved: 07/01/2018 Onset: 07/20/2012 Bipolar I disorder Resolved Resolved: 07/01/2018 Onset: 07/20/2012 Panic disorder without agoraphobia Resolved Resolved: 07/01/2018 Onset: 05/01/2011 Attention deficit hyperactivity disorder, predominantly Resolved inattentive type Resolved: 07/01/2018 Onset: 05/01/2011 Depressive disorder Resolved Resolved: 07/01/2018 Family History Date Family Member(s) Observation Comments General Heart Disease General Cancer Father Heart Attack Age 62 Father due to CHF () Father Diabetes Father Breast Cancer Social History Type Date Description Comments Sex Unknown 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 hours as needed for pain No Active 06/04 Hx Unknown Medications /2018 - 06/04 Celecoxib 03/16 Hx Capsules 200mg 30cap 1 by mouth M15.9 s every day Angelina gibson MD 06/04 Amphetamine-Dextroa 12/15 Hx Caps ER 30mg 30cap 1 by mouth F90.0 Rafita mphet 24HR s every day Angelina gibson MD 06/04 Methylphenidate HCL 09/09 Hx Caps ER 20mg 10cap 1 by mouth F90.0 Rafita ER (LA) 24HR s every day Angelina gibson MD 01/25 Adderall XR 07/30 Hx Caps ER 30mg 30cap 1 by mouth F90.0 24HR s every day Flakoellaliliam - (anjum) os, 09/09 Aleve 07/15 Hx Capsules 220mg 1 tab twice a Castellan - day as os, 03/16 Naproxen Sodium 07/15 Hx Tablets 220mg M54.5 [...] ER 15mg 30cap 1 daily in F90.0 Rafita Sulfate 24HR s am Angelina gibson MD [...] Tablets 50mg 30tab 1 by mouth 311 Rafita s every day Angelina gibson MD 10/24 Adderall XR 10/24 Hx Caps ER 25mg 30cap one daily 314.00 24HR s Angelina gibson MD 02/10 Lisinopril-Hydrochl 10/24 Hx Tablets 10-12.5mg 30tab 1 by mouth 401.9 Rafita oro s every day Angelina gibson MD 11/28 Adderall XR 09/23 Hx Caps ER 10mg 60cap 1 by mouth 314.00 24HR s twice a Angelina Ruelas day MD paige 10/24 Xyzal 09/23 Hx Tablets 5mg 30tab 1 by mouth 995.3 s every day Angelina gibson MD 05/29 Hydrocodone-Acetami 07/18 Hx Tablets 5-325mg 60tab 1 every 4 724.5 Rafita s hrs prn, Flakoellaliliam - 1.5 to 2 os, 09/02 for severe pain Ibuprofen 07/18 Hx Tablets 800mg 90tab 1 by mouth s three Flakoellan - times a osMD Ativan 07/18 Hx Tablets 1mg 2tabs take 1 tab 1/2 hour Flakoellaliliam - before osMD 09/02 procedure take an extra tab at procedure if needed for anxiety Meloxicam 06/23 Hx Tablets 15mg 30tab 1 po qd 724.5 s Angelina gibson MD 07/18 Cyclobenzaprine HCL 06/23 Hx Tablets 10mg 45tab 1 by mouth 724.5 s three Flakoellan - times a osMD Adderall XR 03/20 Hx Caps ER 20mg 30cap 1 by mouth 314.00 24HR s daily in Angelina li MD 09/23 Lisinopril-Hydrochl 06/23 Hx Tablets 20-12.5mg 90tab 1 po qd 401.9 Rafita oro zunilda gibson MD 10/24 Zoloft 10/25 Hx Tablets 50mg 90tab 1 po qd 311 zunilda gibson MD 09/02 Adderall XR 10/25 Hx Caps ER 10mg 60cap 1 tab bid 314.00 24HR s Angelina gibson MD 06/23 Hydrochlorothiazide 07/27 Hx Tablets 25mg 90tab 1 po qd 401.9 zunilda gibson MD 06/23 Adderall XR 05/01 Hx Caps ER 20mg 30cap 1 po qd 314.00 24HR s Angelina gibson MD 05/18 Adderall Hx Tablets 30mg 1 tab by Unknown /0000 mouth - twice a Bupropion HCL ER Hx Tablets 150mg 1 by mouth Unknown (SR) /0000 ER 12HR twice a - day 06/[address] Hx Tablets 500mg by mouth Unknown /0000 DR twice a - day with 06/04 Immunizations CPT Code Status Date Vaccine Reaction Lot # [id number] Given 07/01/2018 Tdap - risk & benefits MF9EA/Tdap/Priv Tetanus/Diptheria/Acel discussed ate lular Pertussis Vital Signs Date Vital Result Comment 07/01/2018 3:52pm Height 70 inches 5'10" Weight 215.00 lb Heart Rate 78 /min BP Systolic 126 mmHg BP Diastolic 86 mmHg Respiratory Rate 16 /min O2 % BldC Oximetry 98 % room air BMI (Body Mass Index) 30.8 kg/m2 06/30/2018 9:38am Height 70.0 inches 5'10" Weight [...] H/L Range Note Comp Metabolic Panel 06/30/2018 [facility] Sodium 137 mmol/L N 135-[address] [place] [address] [phone] Potassium 4.3 mmol/L N 3.5-5.0 Chloride 102 [...] 96.1 >60 2 CBC Auto Diff 06/30/2018 [facility] White Blood 6.2 10^3/uL N 3.5-10.[address] [place] [address] [phone] Red Blood Count 5.60 10^6/uL High 4.18-5.48 [...] Blood Cells % 0.1 Urinalysis Profile 06/30/2018 [facility] Urine Color Yellow [address] [place] [address] [phone] Urine Appearance Clear Urine Specific [place] 1.019 N 1.010-1.030 Urine pH 5.0 N 5-9 Urine Urobilinogen Negative Negative Urine Ketones Negative Negative Urine Protein Negative Negative Urine Leukocytes Negative Negative Urine Blood Negative Negative Urine Nitrite Negative Negative Urine Bilirubin Negative Negative Urine Glucose Negative Negative Inr/Protime 06/30/2018 [facility] Inr 0.90 N 0.77-1.[address] [place] [address] [phone] Laboratory test 06/30/2018 [facility] Partial 30.2 seconds N 26.0-36.3 [address] [place] [address] PTT [phone] Type & Screen 06/30/2018 [facility] Patient A Positive [address] [place] [address] [phone] Antibody Screen NEGATIVE Urine Culture And 06/30/2018 [facility] Urine Culture SEE RESULT [address] [place] [address] [phone] Laboratory test 07/24/2016 N2N/CCD Import Surgical See Result 5, 6 finding Interface Order Below CBC 07/17/2016 N2N/CCD Import Hematocrit 48.0 % 38-4 7 8 Hemoglobin 17.1 gm/dL High 12.8-17 Mean Cell Volume 85.1 fl 80-96 Mean Corpuscular HGB 30.3 pg 27-33 Mean Corpuscular HGB Conc 35.6 g/dL 31.7-36 Mean Platelet Volume 9.3 fL 6.6-10.6 Platelet Count 253 K/uL 150-400 Red Blood Count 5.64 M/uL 4.2-5.8 Red Cell Distri Width %CV 13.0 % 11.6-15.8 White Blood Count 7.0 K/uL 3.4-10.5 Laboratory test finding 07/15/2016 N2N/CCD Import PSA ([place] Loci) 0.54 ng/ mL 8 Reflex add FT3? Y Reflex add [...] Glucose 95 mg/dL 74-106 If >60 mL/min 9 Potassium 3.9 mmol/L 3.5-5.1 Reflex add FT3? Y Reflex add FT4? Y Sodium 141 mmol/L 136-145 LDL Cholesterol Profile 07/15/2016 N2N/CCD Import Cholesterol 235 mg/dL High 10 HDL Cholesterol 53 mg/dL 11 LDL-Cholesterol 154 mg/dL 12 Reflex add FT3? Y Reflex add FT4? Y Triglycerides 138 mg/dL 13 Laboratory test 07/20/2012 N2N/CCD Import Thyroid Stim [...] Glucose 91 mg/dL 76-115 If >60 mL/min 14 Potassium 4.0 mmol/L 3.5-5.1 SGPT/Alt 53 U/L 30-65 Sgot/Ast 19 U/L 16-40 Sodium 139 mmol/L 136-145 Total Protein 7.6 g/dL 6.3-8 LDL Cholesterol 07/20/2012 N2N/CCD Import Cholesterol 228 mg/dL High 120- 200 Profile HDL Cholesterol 45 mg/dL 29-83 LDL-Cholesterol 156 mg/dL 62-185 Triglycerides 134 mg/dL 16-231 1 AA 07/08 2 Because ethnic data is not [...] failure <15 (or dialysis) 3 07/08 4 SEE RESULT BELOW Name: PARISA FORD : [address]: Amaris Calhoun MD Acct: [id number] Unit: [id number] AGE: 53 Location: [facility] Re06/30/18 SEX: M Status: REG REF SPEC: [id number] LEIGH ANN: 06/30/18-[address] [facility] [address]: Amaris Calhoun MD REQ: [id number] RECD: 06/30/18-9922 STATUS: JAMIE CUMMINGS DR: Rafita Benjamin MD _ SOURCE: URINE SPDESC: ORDERED: Urine Culture COMMENTS: 07/08 QUERIES: Urine Source: Clean Catch Procedure Result Reported Site Urine Culture Final 07/01/18- 1217 ML No Growth (<1,000 CFU/mL) * ML - Main Lab . END OF REPORT DEPARTMENT OF PATHOLOGY, [address] [place] [address] Darrel Cheung M.D. Director [facility] # [id number] 5 [id number] SEE RESULT BELOW Name: PARISA FORD : [address]: Rafita Benjamin MD Acct: [id number] Unit: [id number] AGE: 51 Location: [facility] Re07/24/16 SEX: M Status: REG REF SPEC: [id number] LEIGH ANN: 07/24/16-[address] [facility] [address]: Rafita Benjamin MD REQ: [id number] RECD: 07/25/161047 STATUS: SOUT _ ORDERED: LEVEL IV COMMENTS: [id number] FINAL DIAGNOSIS Skin, right mid forearm, excision: [...] performed at Main Lab DEPARTMENT OF PATHOLOGY, [address] [place] [address] Darrel Cheung M.D. Director [facility] # [id number] 7 Z12.5 F32.9 Z00.00 8 THIS ASSAY IS NOT INTENDED A CANCER SCREENING TEST The concentration of PSA in a given specimen, determined with assays from different manufacturers, can vary due to differences in assay methods and reagent specificity. Values obtained from different assay methods cannot be used interchangeably. Method: Siemens Dimension [place] Chemiluminescent immunoassay. 9 Note: Persistent reduction for 3 months or more in an eGFR <60 mL/min/1.73 m2 defines CKD. Patients with eGFR values >/=60 mL/min/1.73 m2 may also have CKD if evidence of persistent proteinuria is present. The original MDRD equation for estimated GFR is not valid for patients less than 18 years of age. Additional information may be found at www.kdoqi.org. 10 Reference Guidelines*: Desirable: ........... < 200 mg/dL Borderline High: ..... 200-239 mg/dL High: ................ >=240 mg/dL * The National Cholesterol Education Program (NCEP) 11 Reference Guidelines*: Low HDL: ..... < 40 mg/dL Normal: ..... 40-60 mg/dL Desirable: ... > 60 mg/dL *The National Cholesterol Education Program(NCEP) 12 Reference Guidelines*: Optimal:........... <100 mg/dL Near Optimal....... 100-129 mg/dL Borderline High.... 130-159 mg/dL High............... 160-189 mg/dL Very High.......... >=190 mg/dL * Source: National Cholesterol Education Program (NCEP) 13 Reference Guidelines*: Normal: ............. < 150 mg/dL Borderline High: .... 150-199 mg/dL High: ............... 200-499 mg/dL Very High: .......... > 500 mg/dL * Source: National Cholesterol Education Program (NCEP) 14 Note: Persistent reduction for 3 months or [...] www.kdoqi.org. Procedures Date Code Description Status 07/24/2016 86146 Biopsy Skin Lesion Single Completed 03/27/2016 30770 EKG Tracing & Interpretation Completed 05/29/2014 28105 Pure Tone Hearing Test, Air Completed 07/13/2013 [id number] Diabetic Retinal Eye Exam Completed 07/20/2012 32074 EKG Tracing & Interpretation Completed 05/15/2010 05196 Visual funct screen test, automated Completed 05/15/2010 92567 Pure Tone-Air Condition Only Completed Encounters Type Date Location Provider Dx Diagnosis Office Visit 06/04/2018 [facility] Am[facility] Calhoun, M25.551 Pain in right hip 8:15a [facility] M16.11 Unilateral primary osteoarthritis, right hip Office Visit 10/12/2015 10:00a [facility] Amaris Calhoun M25.551 Pain in right [facility] hip M16.11 Unilateral primary osteoarthritis, right hip Plan of Treatment Future Appointment(s):07/19/2018 9:00 am - Amaris Calhoun M.D. at [facility]07/08/2018 2:30 pm - Erick Jane PA-C at [facility]07/08/2018 2:30 pm - RAMY Del Castillo at [facility]2018 2:30 pm - Amaris Calhoun M.D. at [facility]12/16/2018 1:00 pm - Rafita Benjamin MD at [facility] Primary Care06/30/2018 - Amaris Calhoun M.D.M25.551 Pain in right hipFollow up:Follow up : 2 weeks after ccknlshX52.11 Unilateral primary osteoarthritis, right hip
[2018-07-08] MEDS ORDERED: KETAMINE HCL* 50 MG/ML 10 ML VIAL ONE (11:33)
[2018-07-08] MEDS ORDERED: Midazolam* 1 MG/ML 5 ML VIAL (5 MG) ONE (11:33)
[2018-07-08] MEDS ORDERED: fentaNYL* 50 MCG/ML 2 ML VIAL (100 MCG VIAL) ONE (11:33)
[2018-07-08] MEDS ORDERED: Acetaminophen TAB* 325 MG ONE (11:46)
[2018-07-08] MEDS ORDERED: Famotidine IV* 10 MG/ML 2 ML (20 mg) ONE (11:46)
[2018-07-08] MEDS ORDERED: Dexamethasone TAB* 4 MG ONE (11:46)
[2018-07-08] MEDS ORDERED: Gabapentin CAP(*) 300 MG ONE (11:46)
[2018-07-08] MEDS ORDERED: Ondansetron ODT TAB* 4 MG ONE (11:46)
[2018-07-08] MEDS ORDERED: celeCOXIB CAP* 100 MG ONE (11:46)
[2018-07-08] MEDS ORDERED: ceFAZolin 2 GM in NS PREMIX(*) 2 GM/100 ML BAG IVPB ONE (11:47)
[2018-07-08] MEDS ORDERED: Bupivacaine 0.5%* 50 ML VIAL ONE (14:01)
[2018-07-08] MEDS ORDERED: Propofol* 10 MG/ML 20 ML BTL ONE (15:17)
[2018-07-08] MEDS ORDERED: Propofol* 500 MG/50 ML BTL ONE (15:17)
[2018-07-08] MEDS ORDERED: Lidocaine 2% PF * 5 ML VIAL ONE (15:17)
[2018-07-08] MEDS ORDERED: Bupivacaine 0.5% SDV PF* 30ML VIAL ONE (15:17)
[2018-07-08] MEDS ORDERED: Bisacodyl SUPP* 10 MG SUPP PR PRN (15:56)
[2018-07-08] MEDS ORDERED: Acetaminophen TAB* 325 MG PO PRN (15:56)
[2018-07-08] MEDS ORDERED: diPHENhydraMINE IV* 50 MG/ML 1 ml VIAL (BENADRYL) IV PRN (15:56)
[2018-07-08] MEDS ORDERED: Magnesium Hydroxide LIQ* 30 ML UDC PO PRN (15:56)
[2018-07-08] MEDS ORDERED: Morphine INJ* 2 MG/ML 1 ML SYRINGE (TWO MG - NEW SYRINGE VERSION) IV PRN (15:56)
[2018-07-08] MEDS ORDERED: oxyCODONE/Acetamin 5/325 MG* TAB PO PRN (15:56)
[2018-07-08] MEDS ORDERED: oxyCODONE/Acetamin 5/325 MG* TAB ONE (17:06)
--- NOTE | 2018-07-08 17:46 | OP ---
Operative Report - Blank - Operative Report Date of Operation: 07/08/18 Note: PARISA VALENZUELA 1965 Date Of Surgery:07/08/18 Amaris Calhoun MD Channel Development Manager: Erick RAMOS did help throughout the procedure with preparation of the hip, wound retraction, manipulation of the hip, and wound closure. Anesthesiologist: Matthew Khoury MD Anesthesia Type: Spinal Preoperative Diagnosis: Right severe degenerative osteoarthritis of the hip Postoperative Diagnosis: As above Procedure Performed: Right Total Hip Arthroplasty Complications: None Specimen: Femoral head and acetabular reamings sent to pathology. Hardware used: This is uncemented Cassia total hip arthroplasty hardware for the femur a size 4 accolade II with 127 degree neck right femoral component, for the acetabulum a size 54E trident II tritanium cluster hole shell with one 20mm screw, for the insert a size 36E trident x3 zero degree insert, and for the femoral head a size 36+0 biolox ceramic V40 femoral head. Brief history/Indication: PARISA VALENZUELA was known in clinic and had a history of severe right hip pain. He failed conservative treatment with anti- inflammatories, pain pills, intra-articular injections and physical therapy. He elected to undergo right total hip arthroplasty due to continued pain and decreased quality of life. Radiographs showed severe end stage osteoarthritis of the hip with bone on bone contact. Informed consent was obtained from the patient. He understood the risks of surgery included but were not limited to: bleeding, infection, damage to nearby structures, intraoperative fracture, nerve palsy, failure of the hardware, early loosening, stiffness or loss of motion, dislocation, leg length discrepancy, anesthesia complications, stroke, heart attack, blood clot and . He wished to proceed. Intra-Operative findings: Intraoperatively the patient was noted to have severe loss of cartilage of the acetabulum and femoral head. Description of the Procedure: PARISA VALENZUELA was identified in the preanesthesia unit. His left hip was marked as the correct operative side. Informed consent was signed and placed in the chart. The patient was taken to the operating room and placed under anesthesia without complication. A auguste catheter was placed. The patient was placed on the peg board with all bony prominences well padded. The left lower extremity was prepped and draped in the usual sterile fashion. Preoperative time -out was made to correctly identify the patient, side and site. Appropriate intraoperative antibiotics were given within one hour of incision. A standard posterior incision was made and carried sharply down to the lateral fascia. A new 10 blade was used to make an incision in the fascia in line with the skin incision. A charnley retractor was placed. The piriformis and conjoined tendons were identified and elevated off the posterolateral femur using electrocautery. These were tagged with number 5 Ethibond. Next electrocautery was used to make a posterolateral capsular flap and this was tagged with number 5 Ethibonds. The hip was carefully dislocated. Lesser trochanter to the center of the femoral head was measured at 55 mm. The oscillating saw was used to make the femoral neck cut. The femoral head was carefully removed. The femur was retracted anteriorly and the acetabular retractors were placed. Long-handled knife was used to sharply remove any remaining labrum from the acetabular rim. The acetabulum was sequentially reamed up to a size 53. A bleeding subchondral bone bed was obtained. A trial liner was placed and had excellent fit and stability. A 54E trident II tritanium cluster hole shell was placed and had excellent stability with appropriate anteversion and abduction angle. A single 20 mm screw was placed in the superior posterior quadrant. A size 36 E trident x3 zero degree liner was impacted into the acetabular shell. The liner was checked for stability and was stable. Next attention was turned to preparation of the femoral canal. A canal finder was used to enter the proximal femur. The femoral canal was sequentially broached up to a size 4 femoral broach trial. A trial neck and 36 + 0 trial femoral head was chosen. Lesser trochanter to center of the femoral head measurement was satisfactory. The hip was reduced and taken through a range of motion. The hip was stable in all positions with good soft tissue tension and appropriate leg lengths. The hip was dislocated and all trials were removed. The final implant chosen was a size 4 accolade II with a 127 degree femoral neck. This stem was impacted into the femoral canal without difficulty. The stem was stable with appropriate anteversion. The femoral head chosen was a 36 + 0 ceramic biolox V40 head. The head was impacted onto the femoral neck without difficulty. The final lesser trochanter to center of the femoral head measurement was satisfactory. The hip was reduced and taken through a range of motion. The hip was stable in all positions with good soft tissue tension and appropriate leg lengths. The hip was copiously irrigated with sterile saline. The previously tagged capsule and tendons were repaired to the posterolateral femur through two trochanteric drill holes. The lateral fascia layer was closed using number 1 vicryls. The rest of the incision was closed in a layered fashion using 0 and 2-0 vicryls. The skin was closed using 3-0 monocryl suture and Dermabond. Sterile adaptic, 4x4s and paper tape was used to cover the incision. The patients anesthesia was reversed without difficulty. He was taken to the PACU in stable condition. Intended weight-bearing will be as tolerated with posterior hip precautions.
[2018-07-08] MEDS: Lactated Ringers 1000 ML Bag* 1,000 ML IV SCH (18:28)
[2018-07-08] MEDS: Magnesium Hydroxide LIQ* 30 ML UDC PO SCH (20:51)
[2018-07-08] MEDS: oxyCODONE/Acetamin 5/325 MG* TAB PO PRN (20:51)
[2018-07-08] MEDS: Docusate CAP* 100 MG PO SCH (20:51)
[2018-07-08] MEDS: ceFAZolin 1 GM ADVAN(*) 1 GM in NS 0.9% 50 ML* 50 ML IVPB SCH (20:52)
[2018-07-08] MEDS: Ondansetron INJ* 2 MG/ML VIAL IV PRN (21:50)
[2018-07-08] MEDS: oxyCODONE TAB* 5 MG TAB PO PRN (23:56)
[2018-07-09] MEDS: Lactated Ringers 1000 ML Bag* 1,000 ML IV SCH (05:28)
[2018-07-09] MEDS: oxyCODONE/Acetamin 5/325 MG* TAB PO PRN ×3 (05:29→19:30)
[2018-07-09] MEDS: ceFAZolin 1 GM ADVAN(*) 1 GM in NS 0.9% 50 ML* 50 ML IVPB SCH ×2 (05:30→13:27)
[2018-07-09 06:19] LABS: Hematocrit 40 % (36-46); Hemoglobin 13.8 g/dL (14.0-18.0); Mean Platelet Volume 7.4 fL (7.4-10.4); Platelet Count 224 10^3/uL (150-450)
[2018-07-09 06:40] LABS: BUN/Creatinine Ratio 19.6 (8-20); EGFR African American 97.2 (>60); EGFR Non-African American 80.4 (>60)
[2018-07-09] MEDS: Vitamin THERAPEUTIC TAB PO SCH (08:41)
[2018-07-09] MEDS: oxyCODONE TAB* 5 MG TAB PO PRN ×2 (08:42→14:13)
[2018-07-09] MEDS: Magnesium Hydroxide LIQ* 30 ML UDC PO SCH ×2 (08:44→19:32)
[2018-07-09] MEDS: Docusate CAP* 100 MG PO SCH ×2 (08:44→20:42)
[2018-07-09] MEDS: Apixaban* 2.5 MG TAB PO SCH ×2 (11:03→20:42)
[2018-07-09] MEDS: Cyclobenzaprine TAB* 10 MG PO PRN ×2 (11:06→21:00)
--- NOTE | 2018-07-09 11:40 | PN ---
Progress Note - Progress Note Date of Service: 07/09/18 SOAP: Subjective: []Patient seen OOB in chair. Had nausea this am which resolved after sitting back down. He denies SOB, CP, palpitations. He hopes to go home Thursday. Objective: [] Vital Signs Temp 98.4 F 07/09/18 07:36 Pulse 88 07/09/18 07:36 Resp 18 07/09/18 11:06 BP 112/69 07/09/18 07:36 Pulse Ox 97 07/09/18 08:00 Intake & Output 07/08/18 07/09/18 07/09/18 18:59 06:59 18:59 Intake Total 3050 1948 609 Output Total 725 2200 1700 Balance 9141 -787 -0640 Weight 213 lb Intake: IV Fluids 3050 990 609 ABX - CEFAZOLIN 55 LR 3000 990 554 NS 50ML, Cefazolin 2G 50 IVPB 58 ABX - CEFAZOLIN 58 Oral 900 Output: Urine 1700 1700 Rodriguez 575 500 Estimated Blood Loss 150 Other: Estimated Blood Loss 200 Comment Laboratory Results - last 24 hr 07/09/18 07/09/18 05:41 05:41 Hgb 13.8 L Hct 40 Plt Count 224 MPV 7.4 Sodium 135 Potassium 4.0 Chloride 101 Carbon Dioxide 26 Anion Gap 8 BUN 19 Creatinine 0.97 Est GFR ( Amer) 97.2 Est GFR (Non-Af Amer) 80.4 BUN/Creatinine Ratio 19.6 Glucose 154 H Calcium 9.0 right hip dressings are dry and intact calf NT and soft + DF right ankle sensation intact distally Assessment: []s/p Right total hip arthroplasty POD #1 Plan: []PT/OT WBAT RLE posterior hip precautions Eliquis for dvt prophylaxis - 1 month post op Dressing change 07/10 Probable discharge home 07/[address] [facility]
[2018-07-09] MEDS: Ondansetron INJ* 2 MG/ML VIAL IV PRN (14:13)
[2018-07-10] MEDS: oxyCODONE/Acetamin 5/325 MG* TAB PO PRN ×3 (00:32→11:47)
[2018-07-10 05:49] LABS: Hematocrit 38 % (36-46); Hemoglobin 13.1 g/dL (14.0-18.0); Mean Platelet Volume 7.3 fL (7.4-10.4); Platelet Count 182 10^3/uL (150-450)
[2018-07-10] MEDS: Docusate CAP* 100 MG PO SCH (07:36)
[2018-07-10] MEDS: Vitamin THERAPEUTIC TAB PO SCH (07:36)
[2018-07-10] MEDS: Apixaban* 2.5 MG TAB PO SCH (07:36)
[2018-07-10] MEDS: Magnesium Hydroxide LIQ* 30 ML UDC PO SCH (07:39)
--- NOTE | 2018-07-10 09:43 | PN ---
Progress Note - Progress Note Date of Service: 07/10/18 SOAP: Subjective: [Pt was seen laying in bed this am. He states that he is doing well. He would like to go home today. He denies any chest pain, SOB, nausea, vomiting.] Objective: [General: Pt is alert and oriented x 3. Appropriate mood, affect, dress, hygiene. MSK, RLE: Inspection reveals a dressing that is c/d/i. Dressing changed today. Incision is c/d/i. There is no drainage or purulence present. The pt some ecchymosis around the incision site. He is able to df/pf. Calf is soft and non tender. Sensation is intact distally and he has a 2+ DP pulse. ] Vital Signs Temp 98.9 F 07/10/18 04:22 Pulse 99 07/10/18 04:34 Resp 16 07/10/18 07:36 BP 111/64 07/10/18 04:22 Pulse Ox 93 07/10/18 04:34 Intake & Output 07/09/18 07/10/18 07/10/18 18:59 06:59 18:59 Intake Total 949 1350 200 Output Total 1700 400 Balance -751 950 200 Intake: IV Fluids 719 ABX - CEFAZOLIN 110 LR 609 Oral 230 1350 200 Output: Urine 1700 400 Other: Estimated Void Medium Medium # Voids 2 2 Assessment: [POD 2 RTHA ] Plan: [-Dressing changed today - DC home today - Continue Eliquis x 1 month - Utilize percocet 5/325 for pain - PT/OT ]
--- NOTE | 2018-07-10 09:54 | DS ---
Orthopedic Discharge Summary - Discharge Summary Date of Admission:07/08/18 Date of Discharge: 07/10/2018 Date of Surgery: 07/08/2018 Attending Orthopedic Provider: Dr. Calhoun Pre-operative Diagnosis: Right hip end stage osteoarthritis Operative Procedure: Right total hip arthroplasty Condition of Patient: Good History: PARISA VALENZUELA is a 53 year old M with years of increasingly severe right hip pain. Patient has failed conservative management and has elected to undergo a right total hip replacement Hospital Course: PARISA was admitted to [facility] on 07/08/18. Patient underwent a right total hip arthroplasty without complication followed by a brief recovery in PACU and transfer to the Short Stay Surgical Unit in stable condition. Our physical therapy and occupational therapy also participated in this patients care. Post-op day 1: patient was alert and in no acute distress. Dressing was clean, dry and intact. Operative extremity dorsiflexion and plantarflexion intact, sensation intact to light touch distally , DP2+. Post-op day two: dressing was changed, incision was clean, dry and intact. Patient was deemed to be medically and orthopedically stable for discharge home. Physical therapy goals were met. Home medications: 1. [place] 5/325 - Discontinue - Replaced with percocet from discharge medications. Discharge Instructions following Orthopedic Surgery: Activity: * Weight Bearing as tolerated * Continue physical therapy and occupational therapy exercises as shown Hip replacements: Continue Hip Precautions- do not cross legs or bend greater than 90 degrees/squat Wound care: * OK to shower on post-op day 3, no bathing, swimming, or submerging wound. * Use gentle soap, pat dry. Cover with gauze, HAZEL wrap or tape. * Visiting home nurse to do wound checks. Call Orthopedic office for: * Increased drainage * Redness * Increased pain * Fever Go to ER with shortness of breath or chest pain. Diet: * Regular diet * Increase fluids and fiber to prevent constipation. * Continue to use stool softeners, call office if no bowel motion within 48 hours. Medications See Home Medication List in your packet for medications that you should take after discharge. DVT Prophylaxis Eliquis Dosin.5 mg, 1 tab every 12 hours x 30 days Pain Control: Percocet 5/325 mg 1-2 tabs by mouth every 4-6 hours as needed for pain. Maximum of 10 tabs per day. Please note that Percocet contains Tylenol (acetaminophen). Maximum daily dose of Tylenol is 4000 mg from all sources. Colace 100mg - take as needed to stimulate bowel movement Antibiotics are required prior to any dental work. FOLLOW UP: Follow up with Dr. Calhoun Within 10-14 days, call for appointment Please call our office with any questions or concerns ([phone])
[2018-07-10 11:04] VITALS: BP 122/75
[2018-07-11] MEDS ORDERED: Scopolamine PATCH Remove* 1 NOTE MISC PATCH OFF ONE (06:06)
== END 2018-07-10 12:45 | disposition home health service (06) | DRG 301 ==
LOC: AA 11:26 → SSU 18:23
PROVIDERS: ADMIT Orthopaedic Surgery Adult Reconstructive Orthopaedic Surgery; ATTEND Orthopaedic Surgery Adult Reconstructive Orthopaedic Surgery
PROC: 0SR904A Replacement of Right Hip Joint with Ceramic on Polyethylene Synthetic Substitute, Uncemented, Open Approach (ICD-10-PCS; principal; 2018-07-08 14:00)
DX: M16.11 Unilateral primary osteoarthritis, right hip (principal); F90.9 Attention-deficit hyperactivity disorder, unspecified type; F32.9 Major depressive disorder, single episode, unspecified; F41.9 Anxiety disorder, unspecified; R11.0 Nausea; Z82.49 Family history of ischemic heart disease and other diseases of the circulatory system; Z80.3 Family history of malignant neoplasm of breast
CPT/HCPCS: 36415; 72170; 80048; 85014; 85018; 85049; A9270-GY; J0690; J2250; J2405; J2704; J3010; J8540